=== PATIENT | female | born 1985 | race Caucasian/White ===

== ENCOUNTER → 2017-03-31 09:26 | Outpatient (REF) | payer OTHER, SELFPAY ==
[2017-03-31 13:44] LABS: Basophils % 0.5 % (0.1-2.0); Eosinophils # 0.2 K/mm3 (0.0-0.4); Eosinophils % 2.6 % (0.1-12.0); Hemoglobin 12.6 g/dL (12.2-16.2); Lymphocytes # 1.7 K/mm3 (0.7-4.5); Mean Corpuscular HGB Conc 31.4 g/dL (31.8-35.4); Mean Corpuscular Hemoglobin 25.5 pg (27.0-31.2); Mean Corpuscular Volume 81.3 fl (81-99); Mean Platelet Volume 8.7 fl (7.4-10.4); Monocytes # 0.4 K/mm3 (0.1-1.0); Monocytes % 5.1 % (1.7-9.3); Neutrophils # 5.2 K/mm3 (1.8-7.8); Neutrophils % 69.8 % (37.0-80.0); Platelet Count 321 K/mm3 (142-424); Red Blood Count 4.93 M/mm3 (4.20-5.40); White Blood Count 7.5 K/mm3 (4.8-10.8)
[2017-03-31 14:18] LABS: Alanine Aminotransferase 20 U/L (12-78); Albumin Level 4.6 gm/dL (3.4-5.0); Albumin/Globulin Ratio 1.4 (1.1-1.8); Alkaline Phosphatase 73 U/L (46-116); Anion Gap 15.8 mEq/L (5-15); Aspartate Amino Transferase 11 U/L (15-37); Bilirubin,Total 0.8 mg/dL (0.2-1.0); Blood Urea Nitrogen 12 mg/dL (7-18); Calcium 9.4 mg/dL (8.5-10.1); Carbon Dioxide 27 mmol/L (21.0-32.0); Chloride 101 mmol/L (98-107); Chol/HDL Ratio 3.3 (1-3.5); Cholesterol 201 mg/dL (140-200); Creatinine,Serum 0.61 mg/dL (0.55-1.02); Estimated Glomerular Filt Rate 113 ml/min (>60); GFR (African American) 137 ML/MIN (>60); Globulin 3.3 gm/dl (1.3-3.2); Glucose 85 mg/dL (74-106); HDL Cholesterol 61 mg/dL (29-89); LDL Cholesterol 133 mg/dL (0-130); Potassium 4.8 mmoL/L (3.5-5.1); Sodium 139 mmol/L (136-145); T4 (Thyroxine) 7.5 ug/dl (4.7-13.3); Thyroid Stimulating Hormone 7.09 uIU/ml (0.358-3.740); Total Protein,Serum 7.9 gm/dL (6.4-8.2); Triglycerides 37 mg/dL (30-200); VLDL Cholesterol 7 mg/dL (0-40)
== END ==
LOC: LAB 09:26
PROVIDERS: Visit Provider Physician Assistant
DX: R10.9 Unspecified abdominal pain (principal)
CPT/HCPCS: 80053; 80061; 82652; 84436; 84443; 85025

== ENCOUNTER → 2018-02-08 10:28 | Outpatient (CLI) | payer OTHER, SELFPAY ==
--- NOTE | 2018-02-08 10:30 | US_ITS ---
US abdomen limited History:Upper quadrant pain Ordering Physician:HEAVEN Dia Patient Age: 32 years Comparison:09/27/2014 Findings: Pancreas:There is slight decreased echogenicity of the pancreas. This is nonspecific and could be due to underlying inflammation. Liver:No focal liver lesions demonstrated. Homogeneous echogenicity. No intrahepatic biliary ductal dilatation evident Right Kidney:Unremarkable. Normal size and echogenicity. No hydronephrosis Gallbladder:No gallstones, gallbladder wall thickening, pericholecystic fluid, or biliary dilatation. Impression: 1. No evidence of cholelithiasis. 2. Decreased echogenicity in the pancreas which does not appear enlarged. No ductal dilatation. This is of questioned clinical significance but could be seen with mild edema
== END ==
PROVIDERS: PCP Physician Assistant; Visit Provider Physician Assistant
DX: R10.11 Right upper quadrant pain (principal)
CPT/HCPCS: 76705

== ENCOUNTER → 2018-02-14 10:15 | Outpatient (CLI) | payer OTHER, SELFPAY ==
--- NOTE | 2018-02-14 10:17 | NM_ITS ---
NM hepatobiliary wo pharm HISTORY: ITS.REASON: Right upper quad pain ORDERING PHYSICIAN: Bryon Theodore MD PATIENT AGE: 32 years COMPARISON: 02/08/2018 DOSE: 8.65 MCI TC Choletec INJ into RT ANT Fatty Meal Ensure FINDINGS: Homogeneous activity is present within the hepatic parenchyma. Activity is present in the gallbladder by 15 minutes. Activity is present in the small bowel by 30 minutes. The gallbladder ejection fraction is calculated to be 40%. The patient did not report pain or other symptoms during the fatty meal. IMPRESSION: Unremarkable hepatobiliary scan and gallbladder ejection fraction. No evidence of common or cystic duct obstruction with normal gallbladder ejection fraction
--- NOTE | 2018-02-14 10:56 | HMH.ITSHM ---
Current Home Medications as stated by this patient Guicho Irving or hospital sales representative. [] CONTROL BENTOL ALLERGY MED LORAZEPAM VITAMINS
== END ==
PROVIDERS: PCP Physician Assistant; Visit Provider Surgery
DX: K82.9 Disease of gallbladder, unspecified (principal)
CPT/HCPCS: 78226; A9537

== ENCOUNTER 2018-08-19 08:08 | Emergency (ER) | payer OTHER, SELFPAY ==
[2018-08-19 08:15] VITALS: BP 132/69; PULSE 82; RESP 18; TEMP 36.7; O2SAT 100; BMI 26.6
--- NOTE | 2018-08-19 08:20 | HMH.EDGENADL ---
ED Disposition Clinical Impression: Migraine Qualifiers: Migraine type: without aura Status migrainosus presence: with status migrainosus Intractability: intractable Qualified Code(s): G43.011 - Migraine without aura, intractable, with status migrainosus Disposition: Home, Self-Care Condition on Discharge: Good Instructions: DI for Migraine Additional Instructions: Additional instructions for HEADACHE: See your physician as soon as possible for further evaluation. Return immediately if worsening headache, vomiting, problems with vision or speech, fever, numbness or weakness of the extremities, neck pain or stiffness. Additional instructions for CONTROLLED SUBSTANCES: You have been prescribed a medication that is a controlled substance. Controlled substances include pain medications known as opiates and sedative nerve medications known as benzodiazepines. Tramadol, fioricet, and gabapentin are also controlled substances. Some common opiates include: Codeine (such as Tylenol #3) Hydrocodone (Vicodin, Lortab, Lorcet, [place]) Oxycodone (Percocet, Percodan, Oxycodone, Oxy IR) Some common benzodiazepines include: Diazepam (Valium) Lorazepam (Ativan) Alprazolam (Xanax) Clonazepam (Klonopin) Oxazepam (Serax) All of these controlled substances are highly addictive and frequently abused. Misuse can and frequently does lead to addiction as well as overdose and . Medication should be stored in a locked cabinet or other secure storage unit. Do not store the medication in a motor vehicle. Short term supplies, 3 days or less, are prescribed because of the highly addictive nature of the medication. Any of the controlled substance medication NOT taken should be disposed of properly and NOT SAVED. The recommended method of disposing of unused medications is: Place the medicines in a sealable plastic bag. If the medicine is a solid, crush it or add water to dissolve it. Add something undesirable (cat litter, coffee grounds, etc.) Dispose of sealed bag in household trash Do not flush or pour unused medicines down a sink or drain. Controlled substances should not be shared, given away or sold. Because of the addictive nature and frequent abuse, these medications are sometimes stolen. These medications should be kept in a safe place where they cannot be stolen. Do not keep them in your car or purse. Lost or stolen prescriptions for controlled substances WILL NOT BE REFILLED in this emergency department, regardless of whether a police report was filed. Prescriptions: Butalb/Acetaminophen/Caffeine [Fioricet 50-300-40 mg Capsule] 1 each PO Q4HP PRN #6 cap PRN Reason: Headache Referrals: Danica Goodson PA [Primary Care Provider] - - Critical Care Critical Care Time: No Attestation: On 08/19/18, the high probability of a clinically significant, sudden or life threatening deterioration of the following system(s) required my full and direct attention, intervention and personal management. The time I documented below is in addition to time spent performing reported procedures but includes the following listed in this critical care notation. Medical Decision Making - Khalif Inquiry Pt receiving controlled substance: Yes Khalif was queried for this patient: Yes Reference #:: [id number] Risks and benefits of using a controlled substance: were discussed with pt by me Comment: 1 rx for lorazepam. Vital Signs: 08/19/18 08:15 08/19/18 09:14 08/19/18 09:42 Temperature 98.1 F Temperature Source Oral Pulse Rate [Right Radial] 82 77 57 L Respiratory Rate 18 16 Blood Pressure [Right Arm] 132/69 102/62 L 107/57 L Blood Pressure Mean [Right Arm] 90 75 73 Blood Pressure Source [Right Arm] Automatic Cuff Automatic Cuff Blood Pressure Position [Right Arm] Sitting Sitting 02 Sat by Pulse Oximetry 100 100 100 Oxygen Delivery Method Room Air Room Air Orders (Tests/Meds): ED MEDICATIONS Discontinued Medi
[2018-08-19 09:14] VITALS: BP 102/62; PULSE 77; RESP 16; O2SAT 100
[2018-08-19 09:42] VITALS: BP 107/57; PULSE 57; O2SAT 100
[2018-08-19 10:11] VITALS: BP 134/74; PULSE 84; RESP 18; TEMP 36.7; O2SAT 98
== END 2018-08-19 10:13 | disposition home or self-care (01) ==
PROVIDERS: Emergency Provider Emergency Medicine; PCP Physician Assistant
DX: G43.011 Migraine without aura, intractable, with status migrainosus (principal); F41.9 Anxiety disorder, unspecified; Z88.0 Allergy status to penicillin; Z88.2 Allergy status to sulfonamides
CPT/HCPCS: 96365; 96375; 99283

== ENCOUNTER → 2018-09-09 11:09 | Outpatient (CLI) | payer OTHER, SELFPAY ==
--- NOTE | 2018-09-09 11:12 | XR_ITS ---
EXAM: XR cervical spine 4V HISTORY: ITS.REASON: neck pain ORDERING PHYSICIAN: HEAVEN Burnham PATIENT AGE: 33 years COMPARISON: None FINDINGS: Normal alignment. No fracture or dislocation. No lytic or blastic change. There is minimal foraminal narrowing on the right at C4-C5. The remaining foramina have an unremarkable appearance. IMPRESSION: Minimal right foraminal narrowing at C4-C5 otherwise negative cervical spine
== END ==
PROVIDERS: PCP Physician Assistant; Visit Provider Physician Assistant
DX: M54.2 Cervicalgia (principal)
CPT/HCPCS: 72050

== ENCOUNTER 2018-11-08 08:30 | Outpatient (RCR) | payer OTHER, SELFPAY ==
--- NOTE | 2018-09-21 09:12 | HMH.PTOPEV ---
PT Outpatient Evaluation Rehab PT Outpatient Evaluation Start: 09/21/18 08:28 Freq: Status: Active Protocol: Document 09/21/18 08:28 YEYO (Rec: 09/21/18 09:12 YEYO [id number]) Electronically Signed By Giovanny Paige, PT 09/21/18 08:28 Outpatient Therapy Subjective History Subjective History Pt reports possible initial injury to neck ~3 yrs ago while wt. lifting, feeling a ' pop' in the L side of neck w/ clean and jerk. Pt reports pain has become more constant over the last 6 months, with L >R sided neck pain, radicular s/s intermittently into B UE's , and cervicogenic HANNON's/' migraines' 2-3x/wk. Chief Complaint Pain,Stiff,Paresthesia Symptom Type Ache,Dull,Numbness,Tingling Symptoms Relieved By Rest/Positioning,Ice Symptoms Aggravated By Sitting,Physical Activity, Lifting Prior Functional Limitations Housework,Desk Work/Reading Current Functional Limitations Lifting,Housework,Desk Work/ Reading,Sitting Symptom Description Constant but Variable Level of pain today (0-10) 6 Pain scale - at its best (0-10) 5 Pain scale - at its worst (0-10) 9 Cervical Eval Palpation Cervical Muscles R Cervical Paraspinal,L Cervical Paraspinal,R Suboccipital,L Suboccipital,R SCM,L SCM,R CT Junction,L CT Junction,R Upper Trapezius,L Upper Trapezius Cervical/Thoracic Palpation Findings Tenderness,Trigger Point, Muscle Guarding Posture Head/C-Spine Posture Sitting Position Flexed Head/C-Spine Posture Standing Position Neutral Position Flexibility Deficits Upper Trapezius Muscle Length (R) Moderate Tightness,(L) Moderate Tightness Levaetor Scapulae Muscle Length (R) Moderate Tightness,(L) Moderate Tightness Scalene Group Muscle Length (R) Moderate Tightness,(L) Severe Tightness Sternocleidomastoid Muscle Length (R) Moderate Tightness,(L) Moderate Tightness Pectoralis Major Muscle Length (R) Mild Tightness,(L) Mild Tightness Pectoralis Minor Muscle Length (R) Mild Tightness,(L) Mild Tightness Passive Joint Mobility Cervical PIVM Dec: R OA L OA
--- NOTE | 2018-10-24 15:03 | HMH.RHREAS ---
Rehab Reassessment Rehab OP Re-assessment Start: 10/24/18 14:59 Freq: Status: Active Protocol: Document 10/24/18 14:59 JANESSAPIERREGEORGE (Rec: 10/24/18 15:03 YEYO [id number]) Electronically Signed By Giovanny Paige, PT 10/24/18 14:59 Rehab Re-assessment Subjective Subjective PT REPORTS SIGNIFICANT IMPROVEMENT IN CERVICOGENIC HANNON FREQUENCY, 'ONLY 1 OR 2 IN THE LAST 2 WEEKS', AND REPORTS DECREASED NECK PAIN @0-3/10 ON VAS Objective Objective Notes CROM: FLX 0-50, EXT 0-60, B SB 0-35, B ROT 0-65 MMT: B UE WFL TTP: R UT 1-24, L UT 0-4 Assessment Progress Assessment Progressing as Expected Assessment Notes PT W/IMPROVED STRENGTH, ROM, AND TTP Patient goals met STG'S 09/11 LTG'S 08/15 Goals Not Met LTG'S 06/15 Plan Plan PT TO CONT. W/SKILLED P.T. TO MAKE FURTHER IMPROVEMENTS IN CROM, STRENGTH, AND TTP TO ALLOW FOR OPTIMAL FUNCTION Frequency of Therapy 1-2X/WK Duration of therapy 3-4WKS Time and Billing Re-Eval Time 15 Re-Eval Billing Units 1 PHYSICIAN CERTIFICATION: I certify the specified therapy services for Guicho Irving are required, authorized, and reviewed every 30 days.
== END 2018-11-08 08:35 | disposition home or self-care (01) ==
LOC: PT 08:30
PROVIDERS: Visit Provider Physician Assistant
DX: M54.2 Cervicalgia (principal)
CPT/HCPCS: 97010; 97014; 97035; 97110; 97140; 97163; 97164; G0283

== ENCOUNTER → 2018-11-09 14:40 | Outpatient (CLI) | payer OTHER, SELFPAY ==
[2018-11-09 14:58] LABS: Basophils % 0.6 % (0.1-2.0); Eosinophils # 0.1 K/mm3 (0.0-0.4); Eosinophils % 2.5 % (0.1-12.0); Hematocrit 41.4 % (37.0-47.0); Lymphocytes # 1.5 K/mm3 (0.7-4.5); Lymphocytes % 28.1 % (10-50); Mean Corpuscular HGB Conc 31.3 g/dL (31.8-35.4); Mean Corpuscular Hemoglobin 26.8 pg (27.0-31.2); Mean Corpuscular Volume 85.7 fl (81-99); Mean Platelet Volume 7.9 fl (7.4-10.4); Monocytes # 0.3 K/mm3 (0.1-1.0); Monocytes % 5.3 % (1.7-9.3); Neutrophils # 3.4 K/mm3 (1.8-7.8); Neutrophils % 63.6 % (37.0-80.0); Platelet Count 330 K/mm3 (142-424); Red Blood Count 4.84 M/mm3 (4.20-5.40); Red Cell Distribution Width 12.8 % (11.5-17.5); White Blood Count 5.4 K/mm3 (4.8-10.8)
[2018-11-09 17:13] LABS: Alanine Aminotransferase 21 U/L (12-78); Albumin Level 4.2 gm/dL (3.4-5.0); Albumin/Globulin Ratio 1.2 (1.1-1.8); Alkaline Phosphatase 52 U/L (46-116); Anion Gap 14.5 mEq/L (5-15); Aspartate Amino Transferase 14 U/L (15-37); Blood Urea Nitrogen 9 mg/dL (7-18); Carbon Dioxide 27 mmol/L (21.0-32.0); Chloride 104 mmol/L (98-107); Chol/HDL Ratio 4.5 (1-3.5); Cholesterol 242 mg/dL (140-200); Creatinine,Serum 0.64 mg/dL (0.55-1.02); Estimated Glomerular Filt Rate 106 ml/min (>60); GFR (African American) 128 ML/MIN (>60); Globulin 3.4 gm/dl (1.3-3.2); Glucose 85 mg/dL (74-106); HDL Cholesterol 54 mg/dL (29-89); LDL Cholesterol 168 mg/dL (0-130); Potassium 4.5 mmoL/L (3.5-5.1); Sodium 141 mmol/L (136-145); T4 (Thyroxine) 10.5 ug/dl (4.7-13.3); Thyroid Stimulating Hormone 5.19 uIU/ml (0.358-3.740); Total Protein,Serum 7.6 gm/dL (6.4-8.2); Triglycerides 101 mg/dL (30-200); VLDL Cholesterol 20 mg/dL (0-40)
[2018-11-09 17:34] LABS: Calcium 9.2 mg/dL (8.5-10.1)
[2018-11-11 11:45] LABS: Vitamin D 25 Hydroxy 28.4 ng/mL (30.0-100.0)
== END ==
PROVIDERS: Visit Provider Physician Assistant
DX: E03.9 Hypothyroidism, unspecified (principal)
CPT/HCPCS: 80053; 80061; 82652; 84436; 84443; 85025

== ENCOUNTER → 2018-12-02 07:47 | Outpatient (CLI) | payer OTHER, SELFPAY ==
--- NOTE | 2018-12-02 07:49 | MR_ITS ---
PROCEDURE: MR CERVICAL SPINE WO CON CLINICAL INDICATION: Neck pain Neck pain, left arm pain numbness and tingling COMPARISON: from 09/09/2018 TECHNIQUE: Standard multiplanar multiecho sequences are performed without contrast. 3-D MIP and myelographic images are also rendered and reviewed FINDINGS: There is normal alignment. The cranial cervical junction has an unremarkable appearance. C2-C3, C3-C4, C4-C5 has an unremarkable appearance. C5-C6: Minimal central disc protrusion versus a prominent posterior longitudinal ligament without impingement. C6-C7 and C7-T1 are unremarkable. IMPRESSION: Minimal central disc protrusion versus prominent posterior longitudinal ligament without impingement at C5-C6 otherwise negative MRI of the cervical spine Dictated by: Carlos Tesfaye MD 12/03/2018 12:00 Electronically signed by Carlos Tesfaye MD in [place] 12/03/2018 12:00
== END ==
PROVIDERS: PCP Physician Assistant; Visit Provider Physician Assistant
DX: M54.2 Cervicalgia (principal)
CPT/HCPCS: 72141; 76376

== ENCOUNTER 2020-01-14 08:29 | Emergency (ER) | payer OTHER, SELFPAY ==
[2020-01-14 08:38] VITALS: BP 118/81; PULSE 83; RESP 18; TEMP 37; O2SAT 98; BMI 32.3
--- NOTE | 2020-01-14 08:43 | HMH.EDGENADL ---
ED Disposition Clinical Impression: Migraine Qualifiers: Migraine type: without aura Status migrainosus presence: with status migrainosus Intractability: intractable Qualified Code(s): G43.011 - Migraine without aura, intractable, with status migrainosus Disposition: Home, Self-Care Condition on Discharge: Good Instructions: DI for Migraine Additional Instructions: Go home to rest in a dark room today. Drink plenty of fluids. Continue Advil migraine as needed. Contact your primary care tomorrow for further care. Referrals: Yasmin Rivas APRN [Primary Care Provider] - - Critical Care Critical Care Time: No Attestation: On , the high probability of a clinically significant, sudden or life threatening deterioration of the following system(s) required my full and direct attention, intervention and personal management. The time I documented below is in addition to time spent performing reported procedures but includes the following listed in this critical care notation. Medical Decision Making - Medical Records Medical records reviewed: Yes: I reviewed the patient's medical records. MR Comment: Has had prior ER visit for migraine - Khalif Inquiry Pt receiving controlled substance: No Vital Signs: 01/14/20 08:38 01/14/20 09:26 01/14/20 09:43 Temperature 98.6 F 98 F Temperature Source Oral Oral Pulse Rate 89 Pulse Rate [Radial] 83 89 Respiratory Rate 18 16 16 Blood Pressure 130/78 Blood Pressure [Right Arm] 118/81 115/73 Blood Pressure Mean [Right Arm] 93 87 Blood Pressure Position [Right Arm] Sitting Sitting 02 Sat by Pulse Oximetry 98 Oxygen Delivery Method Room Air Room Air Orders (Tests/Meds): ED MEDICATIONS Discontinued Medications Generic Name Dose Route Start Last Admin Trade Name Anne-Marie PRN Reason Stop Dose Admin Dexamethasone Sodium Phosphate 10 mg 01/14/20 08:50 01/14/20 08:55 Dexamethasone 4mg/Ml 1ml Vial IV 01/14/20 08:51 10 mg ONCE ONE Administration Diphenhydramine HCl 25 mg 01/14/20 08:50 01/14/20 08:55 Diphenhydramine 50mg/Ml Vial IV 01/14/20 08:51 25 mg ONCE ONE Administration Sodium Chloride 1,000 mls @ 999 mls/hr 01/14/20 08:45 01/14/20 08:45 Sod Chlor 0.9% 1000ml Bag IV 01/14/20 09:45 999 mls/hr .Q1H1M SAMUEL Administration Ketorolac Tromethamine 30 mg 01/14/20 08:50 01/14/20 08:56 Ketorolac 30mg/Ml Vial IV 01/14/20 08:51 30 mg ONCE ONE Administration Prochlorperazine Edisylate 10 mg 01/14/20 08:50 01/14/20 08:55 Prochlorperazine 10mg/2ml Vial IV 01/14/20 08:51 10 mg ONCE ONE Administration - Reevaluation(s) Time: 09:32 Reevaluation #1: improved General Adult HPI - General Stated complaint: migraine 4 days Time Seen by Provider: 01/14/20 08:43 - History of Present Illness HPI narrative: She has a history of chronic migraines. States that she gets migraines about once a month. Current migraine has been present for 4 days. Started on the right side of her head but moved to the left side of her head yesterday. It goes from her left occiput up around her head to her left orbital area. Nausea but no vomiting. Photophobia and blurry vision. No fever, URI symptoms, diarrhea. She is on propanolol for prophylaxis. She has taken a dose of Advil migraine and a dose of Fioricet without improvement. She has tried triptans in the past, but had side effects. She was last in the emergency room here for migraine last August and was treated with Toradol, Benadryl, Compazine with good effect. - Related Data Home Medications Medication Instructions Recorded Confirmed norethindrone-e.estradioL-iron 1 tab PO DAILY 08/19/18 03/26/19 [Toby Fe 1-20 Tablet] Previous Rx's Medication Instructions Recorded buspirone 7.5 mg tablet 7.5 mg PO TID #90 tab 10/11/18 cholecalciferol (vitamin D3) 25 1,000 unit PO DAILY #90 cap 11/11/18 mcg (1,000 unit) capsule ergocalciferol (vitamin D2) 1,250 50
[2020-01-14 09:26] VITALS: BP 115/73; PULSE 89; RESP 16
[2020-01-14 09:43] VITALS: BP 130/78; PULSE 89; RESP 16; TEMP 36.6; O2SAT 98
== END 2020-01-14 09:45 | disposition home or self-care (01) ==
PROVIDERS: Emergency Provider Emergency Medicine; PCP Nurse Practitioner Family
DX: G43.109 Migraine with aura, not intractable, without status migrainosus (principal); F41.9 Anxiety disorder, unspecified; Z79.899 Other long term (current) drug therapy; Z88.0 Allergy status to penicillin; Z88.2 Allergy status to sulfonamides
CPT/HCPCS: 96365; 96375; 99282

== ENCOUNTER 2023-03-30 09:16 | Outpatient (CLI) | payer BC, SELFPAY ==
--- NOTE | 2023-03-30 09:20 | US_ITS ---
FINAL REPORT CLINICAL HISTORY: ACUTE ABDOMINAL PAIN FINDINGS: Ultrasound images of the right upper quadrant were obtained. The liver parenchyma is normal in echogenicity. The gallbladder is well visualized and the wall appears normal. There are multiple gallstones. The common duct is normal. Limited images of the right kidney are unremarkable. IMPRESSION: Cholelithiasis. Reviewed, Interpreted and Dictated by Darrel Romero MD Transcribed by Rayray Brewer Authenticated and [facility]
== END 2023-03-30 23:59 ==
LOC: RAD 09:17
PROVIDERS: PCP Nurse Practitioner Family; Visit Provider Nurse Practitioner Family
DX: R10.9 Unspecified abdominal pain (principal)
CPT/HCPCS: 76705

== ENCOUNTER 2023-04-02 09:51 | Outpatient (CLI) | payer BC, SELFPAY ==
[2023-04-02 10:22] LABS: Urine Pregnancy, HCG Qual. Negative (Negative)
[2023-04-02 10:33] LABS: Basophils # 0.1 K/mm3 (0-0.2); Eosinophils # 0.3 K/mm3 (0.0-0.4); Eosinophils % 5.3 % (0.1-12.0); Hemoglobin 12.1 g/dL (12.2-16.2); Lymphocytes # 1.8 K/mm3 (0.7-4.5); Lymphocytes % 33.1 % (10-50); Mean Corpuscular HGB Conc 32.7 g/dL (31.8-35.4); Mean Corpuscular Hemoglobin 27.1 pg (27.0-31.2); Mean Corpuscular Volume 82.8 fl (81-99); Mean Platelet Volume 8.2 fl (7.4-10.4); Monocytes # 0.4 K/mm3 (0.1-1.0); Monocytes % 7.6 % (1.7-9.3); Neutrophils # 2.9 K/mm3 (1.8-7.8); Neutrophils % 53.1 % (37.0-80.0); Platelet Count 279 K/mm3 (142-424); Red Blood Count 4.47 M/mm3 (4.20-5.40); Red Cell Distribution Width 13.2 % (11.5-17.5); White Blood Count 5.5 K/mm3 (4.8-10.8)
[2023-04-02 10:57] LABS: Alanine Aminotransferase 34 U/L (12-78); Albumin Level 4.7 g/dl (3.5-5.0); Albumin/Globulin Ratio 1.8 (1.1-1.8); Alkaline Phosphatase 54 U/L (38-126); Anion Gap 14.3 mEq/L (5-15); Aspartate Amino Transferase 24 U/L (14-36); Bilirubin,Total 0.9 mg/dl (0.2-1.3); Blood Urea Nitrogen 6 mg/dl (7-17); Calcium 9.6 mg/dl (8.4-10.2); Carbon Dioxide 27 mmol/L (22.0-30.0); Chloride 104 mmol/L (98-107); Estimated Glomerular Filt Rate 111 ml/min (>60); GFR (African American) 135 ML/MIN (>60); Globulin 2.6 g/dL (1.3-3.2); Glucose 94 mg/dl (74-100); Potassium 4.3 mmoL/L (3.5-5.1); Sodium 141 mmol/L (136-145); Total Protein,Serum 7.3 g/dl (6.3-8.2)
== END 2023-04-02 23:59 ==
LOC: LAB 09:52
PROVIDERS: PCP Nurse Practitioner Family; Visit Provider Surgery
DX: K80.20 Calculus of gallbladder without cholecystitis without obstruction (principal)
CPT/HCPCS: 36415; 80053; 81025; 85025

== ENCOUNTER 2023-04-08 06:51 | Day surgery (SDC) | payer BC, SELFPAY ==
[2023-04-05 13:26] VITALS: BMI 29.3
[2023-04-08] VITALS (12 sets, daily range): BP systolic 105–117; BP diastolic 56–98; PULSE 84–117; RESP 16–18; TEMP 36.4–43; O2SAT 98–100
[2023-04-08] MEDS: LACTATED RINGERS 1000ML 1,000 ML 25 ML IV (07:25)
[2023-04-08] MEDS: CLINDAMYCIN PHOSPHATE 900 MG in 0.9 % SODIUM CHLORIDE 50 ML 50 MG IV (07:52)
--- NOTE | 2023-04-08 08:28 | P.PNANES_ITS ---
[facility] Disclaimer: The information contained in this section may have been updated after the patient was seen, as this information can be updated by other users. Medical History Anxiety Headache Hypothyroidism Surgical History History of Family History Other Family history of cancer Family history of myocardial infarction Social History (Updated 04/08/23 @ 07:23 by Sherly Roth RN) Smoking Status: Never smoker alcohol intake: never substance use type: denies use current occupational status: employed Travel in the last 8 weeks: None household members: family housing: house caffeine: No [facility] Anesthesia Checklist Patient Identification Patient Identification: Arm Band Structural Data Admitted From: Home Planned Operative Procedure/s: Laparoscopic Cholecystectomy Consent for Planned Operative Procedure(s) Verified: Yes Verified Documents: Surgical Consent and History and Physical NPO Status Verified Time NPO: 00:00 Additional verifications Anesthesia Reactions: No Hx Blood Transfusions: No Blood Transfusion Reaction: No Airway Assessment Mallampati Score:: Class II C-Spine Mobility Assessed: Yes TMJ Mobility Assessed: Yes Dentition: Good Dentition Neurological Assessment Level of Consciousness: Awake and Alert Anesthesia Plan Anesthesia Risk discussed: Yes Anesthesia Plan: Verified ASA Class: II Anesthesia Type: General
[2023-04-08] MEDS: LIDOCAINE 1% 30ML PF VIAL 30 ML (08:34)
[2023-04-08] MEDS: SODIUM CHLORIDE IRRIG SOLUTION 3,000 ML 999 ML IR (08:35)
--- NOTE | 2023-04-08 09:09 | EXP.OP.NOTE ---
Date of procedure: 04/08/23 Pre-op Diagnosis:: Symptomatic cholelithiasis Post-op Diagnosis:: Chronic calculus cholecystitis Procedure performed:: Laparoscopic cholecystectomy Surgeon:: Bryon Theodore MD LIFE INSURANCE AGENT:: Sachin Almonte Anesthesia: GETA Estimated blood loss (mL): 15 Operative findings:: Fairly severe pericholecystic fat stranding Infundibular thickening Operative note:: After informed consent was obtained, the patient was taken to the operating room and placed in the supine position. General anesthesia was induced and the abdomen was prepped and draped in a sterile fashion. After infiltration with local anesthetic an infraumbilical incision was made. A Veress needle was placed in position. The abdomen was insufflated. A 5 mm optical trocar was placed in position. Under direct visualization, a 12 mm trocar was placed in the subxiphoid position and 2 additional 5 mm trocars were placed in the right upper quadrant. The gallbladder was elevated up and over the liver margin. The tissue around the cystic duct was carefully dissected. Four clips were placed proximally and the duct was transected with harmonic eric. Harmonic eric were then utilized to dissect the gallbladder away from the liver margin with careful attention to the control of the cystic artery. The gallbladder was placed in a retrieval bag and removed through the subxiphoid trocar site. The right upper quadrant was thoroughly irrigated. No active bleeding or bile leak was noted. Fascia at the subxiphoid trocar site was reapproximated utilizing the NeoClose device. The remaining trocars were removed. All wounds were irrigated and skin was closed with 4-0 Monocryl in a subcuticular fashion. Steri-Strips were applied. The patient's anesthetic agents were reversed and extubation was completed prior to transfer to recovery in stable condition. Condition: stable Disposition: PACU Specimens:: Gallbladder Complications:: No immediate
--- NOTE | 2023-04-08 09:16 | EXP.ANES.I ---
[facility] Anesthesia Record Part I Anesthesia Record I Intake, IV Amount: 1,300 Hydration: Adequate Estimated blood loss (mL): 10 Urine output (mL): 0 Blood Products used (#): none Blood Pressure: 113/67 SaO2: 99 Pulse Rate: 90 Airway Patency: Patent Respiratory Rate: 16 Temperature: 99.3 F Patient is:: Drowsy and Stable Stable to PACU at:: 09:15
[2023-04-08] MEDS: HYDROMORPHONE 2MG/ML SYRINGE 0.5 MG IV ×3 (09:20→09:30)
--- NOTE | 2023-04-08 15:07 | EXP.ANES.II ---
[facility] Anesthesia Record Part II Anesthesia Record Part II Discharge Time: 09:45 Destination: Surgical Day Care (OP Surgery) PACU nurse assessment reviewed?: Yes Patient Condition:: Good Anesthesia Complications:: None Swallowing reflex intact?: Yes Airway Patency: Patent Cyanosis?: No Blood Pressure: 117/62 SaO2: 99 Respiratory Rate: 16 Pulse Rate: 87 Temperature: 99.2 F Mental Status: Alert & Oriented Pain level:: 3 Nausea and/or vomitting:: None Intake, IV Amount: 0 Hydration: Adequate
== END 2023-04-08 10:20 | disposition home or self-care (01) ==
PROVIDERS: PCP Nurse Practitioner Family; Visit Provider Surgery
PROC: 0FT44ZZ Resection of Gallbladder, Percutaneous Endoscopic Approach (ICD-10-PCS; CPT 47562; principal; 2023-04-08 08:30)
DX: K80.10 Calculus of gallbladder with chronic cholecystitis without obstruction (principal)
CPT/HCPCS: 47562; 96374; J3490; J0736; J2405

== ENCOUNTER 2023-10-19 11:09 | Outpatient (POV) | payer BC, SELFPAY | END 2023-10-19 23:59 | disposition home or self-care (01) | LOC: SC 11:09 | PROVIDERS: PCP Nurse Practitioner Family; Visit Provider Dermatology | DX: Z00.00 Encounter for general adult medical examination without abnormal findings (principal) ==

== ENCOUNTER 2023-12-29 12:41 | Outpatient (CLI) | payer BC, SELFPAY ==
--- NOTE | 2023-12-29 12:42 | MM_ITS ---
PROCEDURE INFORMATION: Exam: MG Bilateral Screening 3D Mammography Exam date and time: 12/29/2023 12:39 PM Age: 38 years old Clinical indication: Baseline screening mammogram TECHNIQUE: Imaging protocol: Bilateral Screening tomosynthesis and 2D mammography including computer-aided detection (CAD) when performed. COMPARISON: No relevant prior studies available. FINDINGS: MAMMOGRAPHY: Breast composition: The breast is heterogeneously dense, which may obscure small masses. Mass: None. Architectural distortion: No new or suspicious architectural distortion. Calcifications: No new or suspicious calcifications are present Asymmetric density: No new or suspicious asymmetric density is present Skin thickening: None. Axillary adenopathy: None. IMPRESSION: No mammographic evidence of malignancy. Recommend annual screening mammography unless otherwise clinically indicated. ASSESSMENT: BI-RADS category 1: Negative.
== END 2023-12-29 23:59 | disposition home or self-care (01) ==
LOC: RAD 12:42
PROVIDERS: PCP Nurse Practitioner Family; Visit Provider Obstetrics & Gynecology
DX: Z12.31 Encounter for screening mammogram for malignant neoplasm of breast (principal)
CPT/HCPCS: 77063; 77067

== ENCOUNTER 2024-05-04 13:59 | Outpatient (CLI) | payer BC, SELFPAY ==
[2024-05-05 09:12] LABS: Estradiol 89.2 pg/mL (.); Progesterone 8.9 ng/mL (.); Testosterone,Total 11 ng/dL (4-50)
== END 2024-05-04 23:59 | disposition home or self-care (01) ==
LOC: LAB 14:01
PROVIDERS: PCP Nurse Practitioner Family; Visit Provider Obstetrics & Gynecology
DX: N89.8 Other specified noninflammatory disorders of vagina (principal)
CPT/HCPCS: 36415; 82670; 84144; 84403

== ENCOUNTER 2024-09-07 13:39 | Outpatient (CLI) | payer BC, SELFPAY ==
--- NOTE | 2024-09-07 13:45 | US_ITS ---
PROCEDURE: US TRANSVAGINAL CLINICAL INDICATION: AUB COMPARISON: No exams were available for comparison FINDINGS: Transvaginal sonographic images of the pelvis were obtained. UTERUS: 8.5cm x 6.1cmx 5.5 cm anteverted with a combined endometrial thickness of 4.1mm. LEFT OVARY: Not visualized. RIGHT OVARY: 2.7 cmx 2.3cmx1.8 cm with a volume of 5.8ml. There are multiple small follicles giving the ovary a polycystic appearance. Right ovary is seen and appears polycystic.. Doppler flow to right ovary is seen. There is no fluid in the cul-de-sac. IMPRESSION: 1. Anteverted uterus normal in shape and size. The endometrium is thin. 2. The left ovary is not visualized. The right ovary appears polycystic. 3. No fluid in the cul-de-sac. Dictated by: Silviano Moraes MD 09/07/2024 15:44 Silviano Moraes MD in [place] 09/07/2024 15:44
--- OUTSIDE RECORDS SUMMARY | 2024-09-07 13:48 | XMS_ITS | Clinical Summary ---
Author Organization Healthcare Address [address] [place] [address] Care Team Providers Care Silk Presser Name Role Phone Jean Case MD Primary Care Provider [phone] Social History Tobacco Use Types Packs/Day Years Used Date Smoking Tobacco: Every Day Alcohol Use Standard Drinks/Week Comments Yes 0 (1 standard drink = 0.6 oz pur e alcohol) Comments Unknown Sex and Gender Information Value Date Recorded Sex Assigned at Not on file Legal Sex Female 6:47 PM EDT Gender Identity Not on file Sexual Orientation Not on file Last Filed Vital Signs Vital Sign Reading Time Taken Comments Blood Pressure - - Pulse - - Temperature - - Respiratory Rate - - Oxygen Saturation - - Inhaled Oxygen Concentration - - Weight 84.4 kg (186 lb) 10/29/2014 11:54 AM EDT Height 167.6 cm (5' 6 ) 10/29/2014 11:54 AM EDT Body Mass Index 30.02 10/29/2014 11:54 AM EDT Plan of Treatment Not on file Care Teams Silk Presser Relationship Specialty Start Date End Date Jean Case MD [facility] [place] [address] PCP - General 07/19/20
== END 2024-09-07 23:59 | disposition home or self-care (01) ==
LOC: RAD 13:40
PROVIDERS: PCP Nurse Practitioner Family; Visit Provider Obstetrics & Gynecology
DX: E28.2 Polycystic ovarian syndrome (principal)
CPT/HCPCS: 76830